=== PATIENT | female | born 1975 | race Two or more races ===

== ENCOUNTER 2024-07-17 14:24 | Emergency (ER) | payer MEDICAID, OTHER ==
[~2024-07-17] VITALS: Ht 172.7 cm; Wt 94.6 kg
[2024-07-17 15:24] LABS: Urine Bacteria None Seen /hpf (None Seen)
[2024-07-17 15:44] LABS: Urine Blood Negative /uL (Negative); Urine Clarity Clear (Clear); Urine Color Yellow (Yellow); Urine Mucus FEW (None Seen); Urine Protein, UAD 1+ (Negative); Urine Specific Gravity 1.032 (1.001-1.035); Urine Squamous Epithelial Cell FEW /hpf (<5); Urine Urobilinogen 2 mg/dL (Negative); Urine WBC 15 /HPF (0-5); Urine pH 5.5 (5.0-9.0)
--- NOTE | 2024-07-17 16:16 | DVH ---
Procedure: US PELVIC Study Date and Requested Time: 07/17/2024 03:13 PM Study Description: US PELVIC History: pain Comparison: None Technique: Multiple transabdominal and transvaginal high resolution shankar-scale images obtained of the uterus and adnexa with color Doppler for evaluation of adnexal blood flow and vascularity as indicat ed. Findings: Uterus measures 8.4 x 5.2 x 6.2 cm with homogeneous echotexture. Endometrium measures up to 19 mm in thickness with smooth contour. Cervix within normal limits. Right ovary measures 3.8 x 2.6 x 2.9 cm with multiple echogenic structures seen of the right ovary. L eft ovary measures 3 x 2 x 2.6 cm with a 1.6 cm dominant follicle. Normal ovarian color Doppler flow bilaterally. No evidence of free fluid in the cul-de-sac. Impression: Thickened endometrium at 19 mm. Correlate for endometrial hyperplasia. Multiple echogenic structures of the right ovary. Correlate for possible dermoid cyst.
[2024-07-17 16:37] LABS: Basophils # (auto) 0 10 ^3/uL (0-0.2); Basophils % (auto) 0.6 % (0.0-2.0); Eosinophils # (auto) 0.1 10 ^3/uL (0-0.8); Eosinophils % (auto) 1.3 % (0.0-7.0); Hematocrit 46.9 % (36.0-46.0); Hemoglobin 15.8 g/dL (12.2-16.2); Lymphocytes # (auto) 1.3 10 ^3/uL (0.4-5.4); Mean Corpuscular Hgb Conc. 33.6 g/dL (32.0-36.0); Mean Corpuscular Volume 89.4 fL (80.0-100.0); Monocytes # (auto) 0.6 10 ^3/uL (0-1.3); Monocytes % (auto) 8.1 % (0.0-12.0); Neutrophils # (auto) 5.2 10 ^3/uL (1.6-8.6); Platelet Count (auto) 266 10^3/uL (140-450); Red Blood Cells 5.25 10^6/uL (4.0-5.20); Red Cell Distribution Width 13.4 % (11.8-14.3); White Blood Cell 7.2 10^3/uL (4.4-10.8)
[2024-07-17 16:39] LABS: Chloride 106 mmol/L (98-107); Potassium 3.5 mmol/L (3.5-5.1); Sodium 141 mmol/L (136-145)
[2024-07-17 16:40] LABS: Anion Gap 7 (5-15); Carbon Dioxide 28 mmol/L (20-31)
[2024-07-17 16:41] LABS: Calcium 9.8 mg/dL (8.7-10.4)
[2024-07-17 16:46] LABS: BUN/Creatinine Ratio 17.6 (10.0-20.0); Blood Urea Nitrogen 12 mg/dL (9-23); Glucose 103 mg/dL (74-106)
--- NOTE | 2024-07-17 17:06 | ED.PDOC ---
History of Present Illness HPI Comments 49-year-old female who comes in with chief complaint of right pelvic pain. The patient states that the symptoms started approximately 10 days ago. The pain was associated with some nausea and vomiting. The patient also denies any fever or chills. The patient denies any dysuria as well. There has been no vaginal bleeding. She states that the pain is a 10/10. Chief Complaint: Pelvic Pain Time Seen by MD: 14:46 Primary Care Provider: GROSS Reviewed Notes: Nurses Notes, Medications, Allergies (No allergies to medications) Allergies: Coded Allergies: NO KNOWN ALLERGIES (Unverified , 07/17/24) Home Meds Active Scripts Hydrocodone-Acetaminophen (Hydrocodone Bitartrate/AC 5-325 mg) 1 Tab Tab, 1 TAB PO Q8HP PRN for 5 Days, #15 TAB Prov:ADELA DE DIOS MD 07/17/24 Information Source: Patient Mode of Arrival: Ambulatory Severity: Moderate Timing: Days (Symptoms started 10 days ago) Duration: Since onset Prehospital treatment: None Location: Right-sided pelvic pain Associated signs and symptoms No associated nausea or vomiting Past Medical History PAST MEDICAL HISTORY: Denies Surgical History: Cholecystectomy 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 Family History Family History: Family hx of DM, Family hx of HTN Family History (Other): high cholesterol Social History Smoker: Non-Smoker Alcohol: Occasionally Drugs: Denies Drug Use Lives In: Home Constitutional: denies: chills, diaphoresis, fatigue, fever, malaise, sweats, weakness, others EENTM: denies: blurred vision, double vision, ear bleeding, ear discharge, ear drainage, ear pain, ear ringing, eye pain, eye redness, hearing loss, mouth pain, mouth swelling, nasal discharge, nose bleeding, nose congestion, nose pain, photophobia, tearing, throat pain, throat swelling, voice changes, others Respiratory: denies: cough, hemoptysis, orthopnea, SOB at rest, shortness of breath, SOB with excertion, stridor, wheezing, others Cardiovascular: denies: chest pain, dizzy spells, diaphoresis, Dyspnea on exertion, edema, irregular heart beat, left arm pain, lightheadedness, palpitations, PND, syncope, others Gastrointestinal: reports: abdominal pain, others (Right-sided pelvic pain); denies: abdomen distended, blood streaked bowels, constipated, diarrhea, dysphagia, difficulty swallowing, hematemesis, melena, nausea, poor appetite, poor fluid intake, rectal bleeding, rectal pain, vomiting Genitourinary: denies: abnormal vagina bleeding, burning, dyspareunia, dysuria, flank pain, frequency, hematuria, incontinence, pain, , vagina discharge, urgency, others Neurological: denies: dizziness, fainting, headache, left sided numbness, left sided weakness, numbness, paresthesia, pre-existing deficit, right sided numbness, right sided weakness, seizure, speech problems, tingling, tremors, weakness, others Musculoskeletal: denies: back pain, gout, joint pain, joint swelling, muscle pain, muscle stiffness, neck pain, others Integumetry: denies: bruises, change in color, change in hair/nails, dryness, laceration, lesions, lumps, rash, wounds, others Allergic/Immunocompromised: denies: Difficulty Healing, Frequent Infections, Hives, Itching, others Hematologic/Lymphatic: denies: anemia, blood clots, easy bleeding, easy bruising, swollen glands, others Endocrine: denies: excessive hunger, excessive sweating, excessive thirst, excessive urination, flushing, intolerance to cold, intolerance to heat, unexplained weight gain, unexplained weight loss, others Psychiatric: denies: anxiety, bipolar disorder, depression, hopeless, panic disorder, schizophrenia, sleepless, suicidal, others Physical Exam General Appearance: Moderate Distress HEENT: Normal ENT Inspection, Pharynx Normal, TMs Normal Neck: Full Range of Motion, Non-Tender, Normal, Normal Inspection Respiratory: Chest Non-Tender, Lungs Clear, No Accessory Muscle Use, No Respiratory Distress, Normal Breath Sounds Cardiovascular: No Edema, No JVD, No Murmur, No Gallop, Normal Peripheral Pulses, Regular Rate/Rhythm Breast Exam: Deferred Gastrointestinal: No Organomegaly, Non Tender, No Pulsatile Mass, Normal Bowel Sounds, Soft Genitalia: Deferred Pelvic: Deferred Rectal: Deferred Extremities: No calf tenderness, Normal capillary refill, Normal inspection, Normal range of motion, Non-tender, No pedal edema Musculoskeletal : Apperance: Normal Neurologic: Alert, licensing registration examiner II-XII nml as Tested, No Motor Deficits, Normal Affect, Normal Mood, No Sensory Deficits Cerebellar Function: Normal Reflexes: Normal Skin: Dry, Normal Color, Warm Lymphatic: No Adenopathy Was a procedure done? Was a procedure done?: No Differential Dx Considerations may include: Fibroids, UTI X-Ray, Labs, Meds, VS Vital Signs Date Time Temp Pulse Resp B/P (MAP) Pulse Ox O2 Delivery O2 Flow Rate FiO2 07/17/24 14:41 72 07/17/24 14:37 98.9 95 18 144/78 (100) 95 98.9 Lab Test 07/17/24 15:59 07/17/24 14:20 Range/Units White Blood Count 7.2 4.4-10.8 10^3/uL Red Blood Count 5.25 H 4.0-5.20 10^6/uL Hemoglobin 15.8 12.2-16.2 g/dL Hematocrit 46.9 H 36.0-46.0 % Mean Corpuscular Volume 89.4 80.0-100.0 fL Mean Corpuscular Hemoglobin 30.0 28.0-32.0 pg Mean Corpuscular Hemoglobin Concent 33.6 32.0-36.0 g/dL Red Cell Distribution Width 13.4 11.8-14.3 % Platelet Count 266 140-450 10^3/uL Mean Platelet Volume 8.6 6.9-10.8 fL Neutrophils (%) (Auto) 72.0 37.0-80.0 % Lymphocytes (%) (Auto) 18.0 10.0-50.0 % Monocytes (%) (Auto) 8.1 0.0-12.0 % Eosinophils (%) (Auto) 1.3 0.0-7.0 % Basophils (%) (Auto) 0.6 0.0-2.0 % Neutrophils # (Auto) 5.2 1.6-8.6 10 ^3/uL Lymphocytes # (Auto) 1.3 0.4-5.4 10 ^3/uL Monocytes # (Auto) 0.6 0-1.3 10 ^3/uL Eosinophils # (Auto) 0.1 0-0.8 10 ^3/uL Basophils # (Auto) 0 0-0.2 10 ^3/uL Nucleated Red Blood Cells 0.0 % Sodium Level 141 136-145 mmol/L Potassium Level 3.5 3.5-5.1 mmol/L Chloride Level 106 98-107 mmol/L Carbon Dioxide Level 28 20-31 mmol/L Anion Gap 7 5-15 Blood Urea Nitrogen 12 9-23 mg/dL Creatinine 0.68 0.550-1.02 mg/dL Glomerular Filtration Rate Calc 105 >90 mL/min BUN/Creatinine Ratio 17.6 10.0-20.0 Serum Glucose 103 74-106 mg/dL Calcium Level 9.8 8.7-10.4 mg/dL Urine Color Yellow Yellow Urine Clarity Clear Clear Urine pH 5.5 5.0-9.0 Urine Specific [place] 1.032 1.001-1.035 Urine Protein 1+ H Negative Urine Ketones Negative Negative Urine Blood Negative Negative /uL Urine Nitrite Negative Negative Urine Bilirubin Negative Negative Urine Urobilinogen 2 H Negative mg/dL Urine Leukocyte Esterase Trace Negative /uL Urine RBC 82 0 - 4 /hpf Urine Microscopic WBC 15 H 0-5 /HPF Urine Squamous Epithelial Cells Few <5 /hpf Urine Bacteria None seen None Seen /hpf Urine Mucus Few None Seen Urine Glucose Normal Normal mg/dL The CBC is within normal limits. The patient could not test is negative The chemistry panel is within normal limits The patient was being given a prescription of Bailey The ultrasound of the pelvis shows: Impression: Thickened endometrium at 19 mm. Correlate for endometrial hyperplasia. Multiple echogenic structures of the right ovary. Correlate for possible dermoid cyst. The patient understands and agrees with the management. The patient was given a prescription of Bailey Images Reviewed?: Images reviewed and evaluated by me Time of 1ST Reevaluation: 17:05 Reevaluation 1ST: Improved Patient Education/Counseling: Diagnosis, Treatment, Prognosis, Need For Follow Up Family Education/Counseling: No Family Present Departure 1 Departure Time of Disposition: 17:06 Impression: Primary Impression: Pelvic pain Disposition: 01 HOME / SELF CARE / HOMELESS Condition: Fair e-Prescriptions Hydrocodone-Acetaminophen (Hydrocodone Bitartrate/AC 5-325 mg) 1 Tab Tab 1 TAB PO Q8HP PRN for 5 Days, #15 TAB Prov: ADELA DE DIOS MD 07/17/24 Discharged With: Self Critical Care Note Critical Care Time?: No Stability Stability form required: No Heart Score Heart Score: Heart Score Response (Comments) Value History N/A 0 EKG N/A 0 Age N/A 0 Risk Factors N/A 0 Troponin N/A 0 Total 0 ADELA DE DIOS MD Jul 17, 2024:06
[2024-07-17] MEDS ORDERED: HYDR-4902 PO (17:07)
[2024-07-17 19:40] VITALS: BP 140/86; PULSE 85; RESP 17; TEMP 98.1; O2SAT 97
[2024-07-17] MEDS: HYDROcodone-ACET 10/325MG TAB PO ONE (19:41)
== END 2024-07-17 19:45 | disposition home or self-care (01) ==
LOC: ER 14:24
DX: R10.2 Pelvic and perineal pain (principal); R11.2 Nausea with vomiting, unspecified; Z90.49 Acquired absence of other specified parts of digestive tract
CPT/HCPCS: 36415; 76856; 80048; 81001; 85025